=== PATIENT | female | born 1975 | race Two or more races ===

== ENCOUNTER 2017-06-16 10:48 | Outpatient (CLI) | payer OTHER | END 2017-06-16 10:57 | disposition home or self-care (01) | LOC: SONOGRAMA 10:48 | DX: E04.1 Nontoxic single thyroid nodule (principal) ==

== ENCOUNTER 2017-08-12 10:00 | Outpatient (CLI) | payer OTHER | END 2017-08-12 10:36 | disposition home or self-care (01) | LOC: RAD 10:00 → MAMO-SONO 10:00 | DX: E04.2 Nontoxic multinodular goiter (principal); Z12.31 Encounter for screening mammogram for malignant neoplasm of breast ==

== ENCOUNTER 2018-02-07 09:58 | Outpatient (CLI) | payer OTHER | END 2018-02-07 11:16 | disposition home or self-care (01) | LOC: NUCLEAR 09:58 | DX: E05.80 Other thyrotoxicosis without thyrotoxic crisis or storm (principal); E03.8 Other specified hypothyroidism | CPT/HCPCS: 78012; A9531 ==

== ENCOUNTER 2018-02-08 11:05 | Outpatient (CLI) | payer OTHER | END 2018-02-08 13:00 | disposition home or self-care (01) | LOC: NUCLEAR 11:05 | DX: E05.80 Other thyrotoxicosis without thyrotoxic crisis or storm (principal); E03.8 Other specified hypothyroidism | CPT/HCPCS: 78013; A9512 ==

== ENCOUNTER 2019-02-01 13:04 | Outpatient (CLI) | payer OTHER | END 2019-02-01 13:22 | disposition home or self-care (01) | LOC: MAMO-SONO 13:04 | DX: Z12.31 Encounter for screening mammogram for malignant neoplasm of breast (principal); Z87.898 Personal history of other specified conditions; N63.10 Unspecified lump in the right breast, unspecified quadrant; N63.20 Unspecified lump in the left breast, unspecified quadrant; N64.4 Mastodynia; N60.11 Diffuse cystic mastopathy of right breast ==

== ENCOUNTER 2020-06-27 10:55 | Outpatient (CLI) | payer OTHER | END 2020-06-27 11:11 | disposition home or self-care (01) | LOC: MAMO-SONO 10:55 | PROVIDERS: ATTEND Obstetrics & Gynecology Maternal & Fetal Medicine | DX: Z12.31 Encounter for screening mammogram for malignant neoplasm of breast (principal); N64.4 Mastodynia; N60.11 Diffuse cystic mastopathy of right breast ==

== ENCOUNTER 2021-07-03 11:05 | Outpatient (CLI) | payer OTHER | END 2021-07-03 14:39 | disposition home or self-care (01) | LOC: MAMO-SONO 11:05 | PROVIDERS: ATTEND Obstetrics & Gynecology Maternal & Fetal Medicine | DX: N63 Unspecified lump in breast (principal); Z12.31 Encounter for screening mammogram for malignant neoplasm of breast; N64.4 Mastodynia; N60.11 Diffuse cystic mastopathy of right breast ==

== ENCOUNTER 2022-09-09 10:54 | Outpatient (CLI) | payer OTHER | END 2022-09-09 11:01 | disposition home or self-care (01) | LOC: MAMO-SONO 10:54 | PROVIDERS: ATTEND Obstetrics & Gynecology | DX: Z12.31 Encounter for screening mammogram for malignant neoplasm of breast (principal); N60.11 Diffuse cystic mastopathy of right breast ==

== ENCOUNTER 2023-10-28 11:27 | Outpatient (CLI) | payer OTHER | END 2023-10-28 11:39 | disposition home or self-care (01) | LOC: SONOGRAMA 11:27 | PROVIDERS: ATTEND Obstetrics & Gynecology Maternal & Fetal Medicine | DX: N63 Unspecified lump in breast (principal); Z12.31 Encounter for screening mammogram for malignant neoplasm of breast; N64.4 Mastodynia; N60.11 Diffuse cystic mastopathy of right breast ==

== ENCOUNTER 2024-05-31 09:53 | Outpatient (CLI) | payer OTHER | END 2024-05-31 09:56 | disposition home or self-care (01) | LOC: SONOGRAMA 09:53 | PROVIDERS: ATTEND Internal Medicine | DX: R10.2 Pelvic and perineal pain (principal); R94.5 Abnormal results of liver function studies; E04.1 Nontoxic single thyroid nodule ==

== ENCOUNTER 2024-11-23 09:49 | Outpatient (CLI) | payer OTHER | END 2024-11-23 09:53 | disposition home or self-care (01) | LOC: MAMO-SONO 09:49 | PROVIDERS: ATTEND Obstetrics & Gynecology Maternal & Fetal Medicine | DX: N63 Unspecified lump in breast (principal); Z12.31 Encounter for screening mammogram for malignant neoplasm of breast; N64.4 Mastodynia; N60.11 Diffuse cystic mastopathy of right breast ==